=== PATIENT | male | born 1960 | race Caucasian/White ===

== ENCOUNTER 2017-12-12 21:37 | Inpatient (IN) | payer BC ==
[~2017-12-12] VITALS: Ht 195.6 cm; Wt 127.7 kg
--- NOTE | ~2017-12-12 | DS ---
PATIENT:CYN BORRERO :56 MEDICAL RECORD: [id number] DISCHARGE SUMMARY ADMISSION DATE: 12/12/17 DISCHARGE DATE: 12/13/17 DIAGNOSES: 1. Acute anterior myocardial infarction. 2. Percutaneous transluminal coronary angioplasty stent LAD. 3. Hypertension. 4. Hyperlipidemia. HOSPITAL COURSE: Mr. Borrero presents with an acute anterior myocardial infarction, underwent successful PTCA stent of the LAD. He was discharged home with the addition of Plavix to his medical regimen. Follow up with [facility] in one month. TRANSINT:[id number] Voice Confirmation ID: [id number] DOCUMENT ID: [id number] MAGALIS TILLEY MD at 1403 CC: [id number] DICTATION DATE: 12/13/17 1008 MAINTENANCE MECHANIC 2ND SHIFT: 12/13/17 1534 DIS IN 12/13/17 [id number] [place] [address]
--- NOTE | ~2017-12-12 | HP ---
PATIENT: CYN BORRERO MEDICAL RECORD: [id number] ACCOUNT: [id number] LOCATION:[facility] Rosanne.CV03 : 56 ADMISSION DATE: 12/12/17 HISTORY AND PHYSICAL EXAMINATION ADMITTING DIAGNOSES: 1. Acute anterior myocardial infarction. 2. Coronary artery disease. 3. Hypertension. HISTORY OF PRESENT ILLNESS: This is a gentleman who has no previous cardiac history, presents to the Emergency Room with 45 minutes of chest discomfort. EKG is compatible with an acute anterior myocardial infarction. He has received Plavix as well as heparin. He continues to have 8/10 chest pain. REVIEW OF SYSTEMS: The patient reports easy bruising but reports no swollen glands. The patient reports no fever, no night sweats, no significant weight gain, no significant weight loss. No significant exercise tolerance. The patient reports no dry eyes, no irritation, no vision change. Patient reports no difficulty hearing and no ear pain. Patient reports no frequent nose bleeds or nose and sinus problems. Patient reports on arm pain on exertion. No shortness of breath while lying down. No history of heart murmur. Patient reports no cough, no wheezing or coughing up blood. Patient reports no abdominal pain, no vomiting. Normal appetite. No diarrhea and not vomiting blood. No nausea and no constipation. Patient reports no incontinence. No difficulty urinating. No hematuria. No increased frequency. Patient reports no muscle aches. No weakness, no arthralgias, no back pain. No swelling of the extremities. Patient reports no abnormal mole, no jaundice, no rashes. Reports no loss of consciousness. No weakness and no numbness. No seizures, dizziness, or headaches. The patient reports no depression, no sleep disturbance, feeling safe in a relationship and no alcohol abuse. Patient reports on fatigue. Reports no runny nose or sinus pressure. No itching, no hives, and no frequent sneezing. PHYSICAL EXAMINATION: GENERAL APPEARANCE: Well-nourished, well-developed, appears stated age. Level of distress, comfortable. PSYCHIATRIC: Mental status, alert, normal affect. Orientation, oriented to time, place and person. EYES: Lids and conjunctiva, noninjected. No discharge, no pallor. ENT: Lips, teeth, gums, normal dentition. Oropharynx, no cyanosis, no pallor. NECK: Carotid arteries, bilateral normal upstroke, no bruits, no thrills. JUGULAR VEINS: No jugular venous pressure or distention. CERVICAL LYMPH NODES: Nontender, nonenlarged. THYROID: Not enlarged. Nontender. No nodules. LUNGS: Respiratory effort, unlabored. CHEST: Normal curvature. No thoracic deformity. No chest wall tenderness. Percussion, resonant. Auscultation, clear. No wheezes, no rales, no rhonchi. CARDIOVASCULAR: Precordial exam, nondisplaced. No heaves or pericardial thrills. Rate and rhythm, regular. Heart sounds, normal S1, normal S2. No S3, no gallop, no rub. Systolic murmur, not heard. Diastolic murmur, not heard. EXTREMITIES: No cyanosis, no edema. Peripheral pulses, full and equal in all extremities, except as noted. No bruits appreciated. ABDOMEN: Soft, nondistended. Normal aorta. No bruit. Nontender. No masses. Liver, nontender, no hepatomegaly. Spleen, nontender, no splenomegaly. HISTORY AND PHYSICAL [id number] CYN BORRERO MUSCULOSKELETAL: No joint tenderness. No joint swelling. No erythema. NEUROLOGICAL: Normal gait, normal strength, normal tone. SKIN: Warm and dry. OVERALL IMPRESSION: Acute myocardial infarction. We will proceed with coronary angiography. Further care depends upon the findings of the angiography. TRANSINT:[id number] Voice Confirmation ID: [id number] DOCUMENT ID: [id number] MAGALIS TILLEY MD at 1403 CC: [id number] DICTATION DATE: 12/12/172211 MANAGER GALLERY: 12/13/17 0900 DIS IN 12/13/17 [address] [place] [address]
--- NOTE | ~2017-12-12 | OP ---
PATIENT NAME: CYN BORRERO MEDICAL RECORD: [id number] :56 LOCATION:[facility].CV03 ADMISSION DATE:12/12/17 SURGEON: MAGALIS TILLEY MD DATE OF OPERATION: 12/12/2017 PROCEDURES: 1. PTCA stent LAD. 2. PTCA LAD diagonal. 3. Left heart catheterization. 4. Selective coronary angiography. 5. Left ventriculogram. INDICATION: Acute anterior myocardial infarction. PROCEDURE IN DETAIL: After informed consent was obtained and after detailed explanation of risks, benefits as well as alternative therapies, the patient elected to proceed with angiogram and angioplasty. The right femoral area was prepped and draped in normal sterile fashion. Right femoral artery was cannulated via modified Seldinger technique with placement of 6-Ecuadorean sheath. All catheters exchanged through this sheath. FINDINGS: The left ventriculogram was performed in standard 30-degree SPENCER view reveals anteroapical hypokinesis, but ejection fraction still preserved at 50%. SELECTIVE CORONARY ANGIOGRAPHY: 1. Left main is with no significant angiographic disease. 2. Left anterior descending is totally occluded in the mid vessel. This is at the bifurcation of the LAD and LAD diagonal. The LAD as well has an 80% ostial stenosis. 3. The left circumflex is very large, dominant with no significant stenosis. 4. The right coronary artery is small, nondominant with no significant stenosis. PTCA STENT OF THE LAD: The stent used was a 4.0 x 15 in the mid vessel and 4.0 x 8 at the ostium. This caused plaque shift into the diagonal. The diagonal was ballooned with a 3.0 balloon. Result was 0% residual throughout. OVERALL IMPRESSION: Successful percutaneous transluminal coronary angioplasty stent of the left anterior descending going from 100% initial stenosis to 0% residual. TRANSINT:[id number] Voice Confirmation ID: [id number] DOCUMENT ID: [id number] MAGALIS TILLEY MD at 1403 CC: [id number] DICTATION DATE: 12/12/17 2246 CATTERY OPERATOR: 12/13/17 1111 DIS IN 12/13/17 [place] [address]
--- NOTE | ~2017-12-12 | HEMODYNAMI ---
PATIENT:CYN BORRERO MEDICAL RECORD: [id number] : 56 LOCATION:[facility] ADMISSION DATE: 12/12/17 Generatedon:12/12/201722:53 Patient name: CYN BORRERO Patient #: [id number] SSN: D OB: 1960 Date of study: 12/12/2017 Page: Of Hemodynamic Procedure Report Patient Data Patient Demographics Procedure consent was obtained First Name: CYN Gender: Male Last Name: ADAIR : 1960 Middle Initial: L Age: 57 year(s) Patient #: [id number] Race: Unknown Additional ID: [id number] Contact details [address]: [address] [place] [address] STREET State: [place] City: [place] Zip code: [address] Admission Admission Data Admission Date: 12/12/2017 Admission Time: 21:37 Procedure Procedure Types Cath Procedure Diagnostic Procedure LHC LHC w/Coronaries Sedation Charges Moderate Sedation up to 15 minutes PCI Procedure AMI/SVG/GAS ATTENDANT PTCA or Stent AMI-BMS/SHAD Initial PTCA PTCA Additional Procedure Description Procedure Date Procedure Date: 12/12/2017 Procedure Start Time: 22:18 Procedure End Time: 22:46 Procedure Staff Name Function Benoit Hutchinson MD Performing Physician Kerry Park RT Monitor Rola Enriquez RT Scrub Joseph Amos RN Nurse Procedure Data Cath Procedure Fluoroscopy Diagnostic fluoroscopy Total fluoroscopy Time: time: 10.5 min 10.5 min Diagnostic fluoroscopy Total fluoroscopy dose: dose: 1733 mGy 1733 mGy Contrast Material Contrast Material Type Amount (ml) Isovue 300 239 Entry Location Entry Primary Successful Side Size Upsize Upsize Entry Closure Succes sful Closure Location (Fr) 1 (Fr) 2 (Fr) Remarks Device Remarks Femoral Right 6 Fr Exoseal artery Short Estimated blood loss: 5 ml Diagnostic catheters Device Type Used For End Catheter Placement MULTIPACK Pigtail 5 Fr LV Angiography catheter MULTIPACK JL 4.0 5Fr Left Coronary catheter Angiography MULTIPACK 3DRC 5Fr Right Coronary catheter Angiography Procedure Complications No complications Procedure Medications Medication Administration Route Dosage Oxygen NC 2 l/min Lidocaine 2% added to field 20 Heparin Flush Bag added to field 2 bags (1000units/500ml NS) 0.9% NaCl I.V. 100 ml/hr Zofran I.V. 4 mg Versed I.V. 1 mg Fentanyl I.V. 50 mcg Integrilin (Bolus I.V. 11.3 ml 2mg/ml) Amiodarone Loading I.V. drip 150 mg Dose (150mg/100ml D5W) Integrilin (Bolus I.V. 11.3 ml 2mg/ml) Heparin Bolus I.V. 5000 units Lopressor I.V. 5 mg Versed I.V. 1 mg Fentanyl I.V. 50 mcg Hemodynamics Rest Heart Rate: 88 (bpm) Pressure Samples Time Site Value (mmHg) Purpose Heart Use Rate(bpm) 22:19 LV 105/14,17 Snapshot 78 Snapshots Pre Cath Intra NCS Post Cath Vital Signs Time Heart Resp SPO2 etCO2 NIBP (mmHg) Rhythm Pain Sedation Rate (ipm) (%) (mmHg) Status Level (bpm) 22:13:26 90 18 98 29.1 173/116(135) NSR 0 (11) 10(A) , No pain 22:18:26 86 16 94 29.8 168/110(138) NSR 0 (11) 10(A) , No pain 22:23:22 92 20 95 34.3 162/113(138) NSR 0 (11) 10(A) , No pain 22:28:19 102 13 96 32.8 139/98(110) NSR 0 (11) 10(A) , No pain 22:33:10 95 14 97 34.3 136/93(118) NSR 0 (11) 10(A) , No pain 22:37:59 86 15 95 38.8 138/96(112) NSR 0 (11) 10(A) , No pain 22:42:48 85 19 96 24.6 137/100(118) NSR 0 (11) 10(A) , No pain Medications Time Medication Route Dose Verified Delivered Reason Notes Effectiveness by by 22:12:35 Oxygen NC 2 Benoit Ruiz used for l/min Evaneglina Amos system dispatcher 22:12:40 Lidocaine 2% added 20ml Benoit Laboy for local to vial Evangelina Hutchinson MD anesthetic field 22:12:46 Zofran I.V. 4 mg Benoit Ruiz Per physician Evangelina Amos RN 22:12:46 Heparin Flush added 2 Benoit Laboy used for Bag to bags Evangelina Hutchinson MD procedure (1000units/500ml field NS) 22:12:54 0.9% NaCl I.V. 100 Benoit Deyie Per physician ml/hr Evangelina Amos RN 22:14:56 Versed I.V. 1 mg Benoit Deyie for sedation Evangelina Amos RN 22:14:59 Fentanyl I.V. 50 Benoit Buffie for sedation mcg Evangelina Amos RN 22:17:26 Versed I.V. 1 mg Benoit Deyie for sedation Evangelina Amos RN 22:17:32 Fentanyl I.V. 50 Benoit Buffie for sedation mcg Evangelina Amos RN 22:20:46 Integrilin I.V. 11.3 Benoit Ruiz for (Bolus 2mg/ml) ml Evangelina Amos RN antiplatelet therapy 22:30:09 Amiodarone I.V. 150 Benoit Buffie for arrhythmia Loading Dose drip mg Evangelina Amos RN (150mg/100ml D5W) 22:32:30 Integrilin I.V. 11.3 Benoitchristopher Deyie for used 3 (Bolus 2mg/ml) ml Evangelina Amos RN antiplatelet vials, therapy wasted 7.4 ml of last vial 22:33:23 Heparin Bolus I.V. 5000 Benoitchristopher Deyie for verifi ed units Evangelina Amos RN anticoagulation with dr hutchinson 22:35:35 Lopressor I.V. 5 mg Benoit Ruiz for Evangelina Amos RN hypertension Procedure Log Time Note 21:54:49 Signed procedure consent form obtained from patient. 21:54:50 Time tracking: Call back (After hours or weekends) 21:54:58 Plan of Care:Hemodynamics will remain stable., Cardiac rhythm will remain stable., Comfort level will be maintained., Respiratory function will remain adequate., Patient/ family verbilizes understanding of procedure., Procedure tolerated without complication., Recovers from procedure without complications.. 21:55:28 H&P Date Dictated: 12/12/2017 ER History on chart.. 21:55:45 Joseph Amos RN sent for patient. Start room use. 22:05:23 Patient received from ED to CCL 1 Alert and oriented. Tansferred to table in Supine position. 22:05:24 Warm blankets applied, and curtis hugger turned on for patient comfort. 22:05:24 Correct patient and procedure confirmed by team. 22:05:25 ECG and BP/O2 sat monitors applied to patient. 22:12:17 Vital chart was started 22:12:19 Baseline sample Acquired. :12:21 Full Disclosure recording started 22::22 Pre-procedure instructions explained to patient. 22:12:23 Pre-op teaching completed and patient verbalized understanding. 22:12:26 Family in waiting room. 22:12:28 Patient NPO since Midnight. 22:12:33 Is the patient allergic to Iodine/contrast media? No. 22:12:35 Oxygen 2 l/min NC was administered by Joseph Amos RN; used for procedure; 22:12:35 Was the patient premedicated? No 22:12:36 Is patient on blood thinner?Yes 22:12:39 ACC The patient was administered the following blood thiners within the last 24 hours: ACCPlavix 22:12:40 Lidocaine 2% 20ml vial added to field was administered by Benoit Hutchinson MD; for local anesthetic; 22:12:45 Patient diabetic? No. 22:12:46 Zofran 4 mg I.V. was administered by Joseph Amos RN; Per physician; 22:12:46 Heparin Flush Bag (1000units/500ml NS) 2 bags added to field was administered by Benoit Hutchinson MD; used for procedure; 22:12:50 Previous problem with sedation/anesthesia? No ? 22:12:54 0.9% NaCl 100 ml/hr I.V. was administered by Joseph Amos RN; Per physician; 22:12:54 Snore? Yes 22:12:55 Sleep apnea? Yes 22:13:00 Deviated septum? No 22:13:01 Opens mouth fully? Yes 22:13:01 Sticks out tongue? Yes 22:13:03 Airway obstruction? No ? 22:13:06 Dentures? No ? 22:13:09 Pre procedure: right dorsailis pedis pulse 2+ Normal; easily identifiable; not easily obliterated 22:13:11 Pre procedure: left dorsailis pedis pulse 2+ Normal; easily identifiable; not easily obliterated 22:13:13 Patient pain scale 0/10 ?. 22:13:18 IV patent on arrival in left forearm with 0.9% NaCl at [facility]. 22:13:21 Lab results completed and on chart. 22:13:25 Right groin area was prepped with chlora-prep and draped in sterile fashion 22:13: Alarms reviewed by R. N. :: Sharps counted by scrub and verified by R.N. 22:: Physician arrived :: --------ALL STOP TIME OUT------ ::29 Final Timeout: patient, procedure, and site verified with staff and physician. All members of the team are in agreement. 22:13: Right groin site verified by team. 22:13:34 Physical assessment completed. ASA score P 2 - A patient with mild systemic disease as per Benoit Hutchinson MD. 22:13:37 Sedation plan: IV Moderate Sedation Medication:Versed, Fentanyl 22:13:42 Use device set Femoral Dx 22:14:56 Versed 1 mg I.V. was administered by Joseph Amos RN; for sedation; 22:14:59 Fentanyl 50 mcg I.V. was administered by Joseph Amos RN; for sedation; 22:15:30 ACIST Syringe (15478) opened to sterile field. 22:15:30 Bag Decanter (2002) opened to sterile field. 22:15:31 Medline Cath Pack ([id number]) opened to sterile field. 22:15:31 DIAGNOSTIC WIRE .035 260cm J wire (872427) opened to sterile field. 22:15:32 ACIST Hand Control (94188) opened to sterile field. 22:15:33 ACIST Manifold (27632) opened to sterile field. 22:15:34 DIAGNOSTIC Multipack 5Fr catheter set (QY9141) opened to sterile field. 22:15:34 Tegaderm 4 x 4 (1626W) opened to sterile field. 22:17:26 Versed 1 mg I.V. was administered by Joseph Amos RN; for sedation; 22:17:32 Fentanyl 50 mcg I.V. was administered by Joseph Amos RN; for sedation; 22:17:57 Procedure started. 22:18:02 Local anesthetic to right femoral artery with Lidocaine 2% by Benoit Hutchinson MD.INITIAL ACCESS ONLY 22:18:28 A 6 Fr Short sheath was inserted into the Right Femoral artery 22:18:42 SHEATH 6Fr Prelude ([id number]) opened to sterile field. 22:19:06 A MULTIPACK Pigtail 5 Fr catheter was advanced over the wire and used for LV Angiography. 22:19:42 LV hemodynamics recorded. 22:19:43 LV gram done using SPENCER 22:19:46 Injector settings: Ml/sec: 5, Volume: 15, 22:19:53 EF : 50 % 22:19:58 Catheter removed. 22:20:02 A MULTIPACK JL 4.0 5Fr catheter was advanced over the wire and used for Left Coronary Angiography. 22:20:46 Integrilin (Bolus 2mg/ml) 11.3 ml I.V. was administered by Joseph Amos RN; for antiplatelet therapy; 22:21:00 LCA angiography performed. 22:21:40 Injector settings: Ml/sec: 3, Volume: 6, 22:22:28 CHOICE PT Extra Support 182cm wire ([id number]) opened to sterile field. 22:22:49 Catheter removed. 22:22:56 A MULTIPACK 3DRC 5Fr catheter was advanced over the wire and used for Right Coronary Angiography. 22:23:02 RCA angiography performed. 22:23:04 Injector settings: Ml/sec: 3, Volume: 6, 22:23:06 Catheter removed. 22:23:07 Proceeding to intervention. 22:23:17 INFLATOR Merit BasixCompak (PP9857) opened to sterile field. 22:24:04 GUIDE 6FR EBU 4.5 SH catheter ([id number]) opened to sterile field. 22:24:20 6 Fr ebu 4.5 sh guide catheter was inserted over the wire 22:24:36 choice pt wire advanced. 22:26:15 Wire advanced across lesion. 22:27:07 Place stent Inflation Number: 1 A INTEGRITY RX 4.0 x 15 stent ([id number]) was prepped and advanced across the Prox LAD. The stent was deployed at 17 GEMA for 0:10 (min:sec). 22:28:57 patient went into v tach 22:29:02 Quick combo pads placed on patients chest and back. 22:29:13 Defibrillator synced and charged to 200 Joules. 22:29:17 Shock delivered. 22:30:09 Amiodarone Loading Dose (150mg/100ml D5W) 150 mg I.V. drip was administered by Joseph Amos RN; for arrhythmia; 22:32:14 Stent catheter was removed intact over wire. 22:32:30 Integrilin (Bolus 2mg/ml) 11.3 ml I.V. was administered by Joseph Amos RN; for antiplatelet therapy; used 3 vials, wasted 7.4 ml of last vial 22:32:37 Inflate balloon Inflation number: 2 A INTEGRITY RX 4.0 x 09 stent ([id number]) was prepped and advanced across the Prox LAD, then inflated to 17 GEMA for 0:10 (min:sec). 22:33:23 Heparin Bolus 5000 units I.V. was administered by Joseph mAos RN; for anticoagulation; verified with dr hutchinson 22:33:43 Stent catheter was removed intact over wire. 22:35:35 Lopressor 5 mg I.V. was administered by Joseph Amos RN; for hypertension; 22:36:33 Wire redirected to diagonal. 22:39:36 The INTEGRITY RX 4.0 x 09 stent ([id number]) was advanced and then removed because of failure to cross lesion 22:40:34 Inflate balloon Inflation number: 1 A EUPHORA 3.0 x 15 Balloon ([id number]) was prepped and advanced across the 1st Diag, then inflated to 11 GEMA for 0:10 (min:sec). 22:40:43 Inflation number: 2 The EUPHORA 3.0 x 15 Balloon ([id number]) was reinflated across the 1st Diag, to 13 GEMA for 0:10 (min:sec). 22:41:46 Balloon removed over the wire. 22:41:46 Wire removed. 22:41:47 Guide catheter removed. 22:42:06 EXOSEAL 6Fr (EX600) opened to sterile field. 22:42:30 Sheath removed intact; hemostasis achieved with Exoseal to the Right Femoral artery. 22:43:13 Procedure ended.(Physican Out) :43:28 Fluoroscopy time 10.50 minutes. ::37 Fluoroscopy dose: 1733 mGy 22:43:37 Flurop Dose total: 1733 22:43:47 Contrast amount:Isovue 300 239ml. 22:43:49 Sharps counted by scrub and verified by R.N. 22:43:51 Insertion/operative site no bleeding no hematoma. 22:43:54 Post-op/insertion site Right Femoral artery dressed using a 4 x 4 and Tegaderm. 22:43:57 Post right femoral artery:stable 22:43:59 Post Procedure Pulses reassessed and unchanged 22:44:03 Post procedure rhythm: sinus rhythm 22:44:06 Estimated blood loss: 5 ml 22:44:08 Post procedure instruction explained to patient.Patient verbalizes understanding. 22:44:09 Patient needs reinforcement of post procedure teaching. 22:44:50 Procedure type changed to Cath procedure, Diagnostic procedure, LHC, LHC w/Coronaries, Sedation Charges, Moderate Sedation up to 15 minutes, PCI procedure, AMI/SVG/GAS ATTENDANT PTCA or Stent, AMI-BMS/SHAD Initial, PTCA, PTCA Additional 22:44:51 Procedure and supply charges have been captured, reviewed, submitted and are correct. 22:44:58 Procedure Complication : No complications 22:45:53 Vital chart was stopped 22:45:55 See physician's report for complete and final results. 22:46:07 Report given to CVICU. 22:46:09 Patient transfered to CVICU with Stretcher. 22:46:12 Procedure ended. 22:46:12 Full Disclosure recording stopped 22:46:19 ACC-PCI Only Patient was given prescriptions, or instructed by Benoit Hutchinson MD to start/continue the following medications upon discharge: Plavix 22:46:21 End room use (Document Last) Intervention Summary Intervention Notes Time ActionType Lesion and Equipment Action# Pressure Duration Attributes Used 22:27:07 Place stent Prox LAD INTEGRITY RX 1 17 00:10 4.0 x 15 stent ([id number]) 22:32:37 Inflate Prox LAD INTEGRITY RX 2 17 00:10 balloon 4.0 x 09 stent ([id number]) 22:39:36 Discard INTEGRITY RX Balloon 4.0 x 09 stent ([id number]) 22:40:34 Inflate 1st Diag EUPHORA 3.0 1 11 00:10 balloon x 15 Balloon ([id number]) 22:40:43 Reinflate 1st Diag EUPHORA 3.0 2 13 00:10 balloon x 15 Balloon ([id number]) Device Usage Item Name Manufacture Quantity Catalog Number Hospital Part Current Mini mal Lot# / Charge Number Stock Stock Serial# Code ACIST Acist 1 78108 222654 234320 922918 20 Syringe Medical (26235) Systems Inc Bag Decanter Microtek 1 2001S 366984 83950 090093 5 () Medical Inc. Medline Cath Cardinal 1 [id number] 394277 32233 919246 5 Pack Health ([id number]) DIAGNOSTIC St [place] 1 003409 023430 258601 093107 30 WIRE .035 260cm J wire (656344) ACIST Hand Acist 1 82545 262969 654582 374742 5 Control Medical (65490) Systems Inc ACIST Acist 1 86849 761799 243190 598437 5 Manifold Medical (70683) Systems Inc DIAGNOSTIC Cardinal 1 TX4176 365216 59047 277598 30 Multipack Health 5Fr catheter set (OK4272) Tegaderm 4 x 3M 1 1626W 086646 528948 372753 5 4 (1626W) SHEATH 6Fr Merit 1 [id number] 989578 155875 695952 5 Prelude Medical ([id number]) MULTIPACK Cardinal 1 245802 5 Pigtail 5 Fr Health catheter MULTIPACK JL Cardinal 1 874533 5 4.0 5Fr Health catheter CHOICE PT [place] 1 [id number] 165998 539319 056485 5 Extra Scientific Support 182cm wire ([id number]) MULTIPACK Cardinal 1 523882 5 3DRC 5Fr Health catheter INFLATOR Merit 1 CM5694 663637 333970 062437 15 [place] Medical BasixCompak (KR6475) GUIDE 6FR Medtronic 1 [id number] 572510 19442 463811 0 EBU 4.5 SH catheter ([id number]) INTEGRITY RX Medtronic 1 [id number] 414631 884004 051260 5 [id number] 4.0 x 15 stent ([id number]) INTEGRITY RX Medtronic 1 [id number] 247521 350422 913807 5 [id number] 4.0 x 09 stent ([id number]) EUPHORA 3.0 Medtronic 1 [id number] 287396 951638 816092 5 [id number] x 15 Balloon ([id number]) EXOSEAL 6Fr Cardinal 1 EX600 174559 340769 995261 10 (EX600) Health Signature Audit [place] Stage Time Signature Unsigned Intra-Procedure 12/12/2017 Kerry Park 10:53:48 PM RT(R) Signatures Monitor : Kerry Park RT Signature : Date : Time : [id number] [place] [address]
--- NOTE | ~2017-12-12 | HP ---
PATIENT: CYN BORRERO MEDICAL RECORD: [id number] ACCOUNT: [id number] LOCATION:[facility].CV03 : 56 ADMISSION DATE: 12/12/17 HISTORY AND PHYSICAL EXAMINATION ADDENDUM Note: I said one thing incorrectly, it should be anterior not inferior, so everywhere where I said inferior just change it to anterior. TRANSINT:[id number] Voice Confirmation ID: [id number] DOCUMENT ID: [id number] MAGALIS TILLEY MD CC: [id number] DICTATION DATE: 12/12/172243 ADMINISTRATION INTERNSHIP: 12/13/17 0904 ADM IN [facility] [address] [place] [address]
[2017-12-12 21:52] LABS: BASOPHILS 0.6 % (0-2); EOSINOPHILS 2.8 % (0-7); HEMATOCRIT 42.9 % (42.0-54.0); HEMOGLOBIN 14.9 g/dL (13.5-17.5); IMMATURE GRANULOCYTES 0.1 % (0-5); LYMPHOCYTES 47.2 % (15-50); MCH 31.7 pg (26.0-34.0); MCHC 34.7 g/dL (31.0-37.0); MCV 91.3 fL (80.0-100.0); MEAN PLATELET VOLUME 10.4 fL (7.4-10.4); MONOCYTES 7.6 % (2-11); NEUTROPHILS 41.7 % (40-80); PLATELET COUNT 207 10x3/uL (130-400); RDW 13.2 % (11.5-14.5); WBC 7.9 10x3/uL (4.8-10.8)
[2017-12-12 22:20] LABS: ALBUMIN 3.7 g/dL (3.4-5.0); ALKALINE PHOSPHATASE 59 U/L (46-116); ALT (SGPT) 36 U/L (10-68); BILIRUBIN - TOTAL 0.39 mg/dL (0.2-1.3); CALC OSMOLALITY 288 mosm/kg (275-300); CALCIUM 9.3 mg/dL (8.5-10.1); CARBON DIOXIDE 30.5 mmol/L (21.0-32.0); CHLORIDE - SERUM 105 mmol/L (98-107); CREATININE - SERUM 1.4 mg/dL (0.6-1.3); GLUCOSE 115 mg/dL (74-106); POTASSIUM - SERUM 3.5 mmol/L (3.5-5.1); PROTEIN - SERUM 7.7 g/dL (6.4-8.2); SODIUM 143 mmol/L (136-145); UREA NITROGEN 21 mg/dL (7-18); eGFR NON AFRICAN AMERICAN 55 mL/min (90-120)
[2017-12-12 22:34] LABS: CHOL - HDL RATIO 7.4 ratio (2.3-4.9); CHOLESTEROL, TOTAL 193 mg/dL (0-200); CKMB 2.4 U/L (0.0-3.6); CREATINE KINASE 190 UL (21-232); HDL CHOLESTEROL 26 mg/dL (32-96); LDL CHOLESTEROL 135 mg/dL (0-100); LDL-HDL RATIO 5.2 ratio (1.5-3.5); TRIGLYCERIDE 164 mg/dL (30-200)
[2017-12-12 22:39] LABS: TROPONIN-I 0.153 ng/mL (0.000-0.060)
[2017-12-12] MEDS ORDERED: METOPROLOL TART50 MG PO (23:57)
[2017-12-12] MEDS ORDERED: LIPITOR10 MG PO (23:57)
[2017-12-12] MEDS ORDERED: HYZAAR 100-25 T1 TAB PO (23:58)
[2017-12-13] VITALS (12 sets, daily range): BP systolic 130–149; BP diastolic 81–95; Ht 195.6 cm; Wt 127.7 kg
[2017-12-13] MEDS ORDERED: NORVASC5 MG PO (00:01)
[2017-12-13] MEDS ORDERED: ZYLOPRIM300 MG PO (00:02)
[2017-12-13 05:51] LABS: BASOPHILS 0.2 % (0-2); EOSINOPHILS 0.7 % (0-7); HEMATOCRIT 40.8 % (42.0-54.0); IMMATURE GRANULOCYTES 0.2 % (0-5); LYMPHOCYTES 25.1 % (15-50); MCH 31.9 pg (26.0-34.0); MCHC 34.3 g/dL (31.0-37.0); MCV 92.9 fL (80.0-100.0); MEAN PLATELET VOLUME 10.2 fL (7.4-10.4); MONOCYTES 8.8 % (2-11); PLATELET COUNT 186 10x3/uL (130-400); RBC 4.39 10x6/uL (4.20-6.10); RDW 13.3 % (11.5-14.5); WBC 8.9 10x3/uL (4.8-10.8)
[2017-12-13 06:37] LABS: CALCIUM 8.7 mg/dL (8.5-10.1); CARBON DIOXIDE 29.2 mmol/L (21.0-32.0); CHLORIDE - SERUM 105 mmol/L (98-107); GLUCOSE 111 mg/dL (74-106); SODIUM 143 mmol/L (136-145)
[2017-12-13 06:38] LABS: CALC OSMOLALITY 286 mosm/kg (275-300); POTASSIUM - SERUM 4.1 mmol/L (3.5-5.1); UREA NITROGEN 15 mg/dL (7-18); eGFR NON AFRICAN AMERICAN 81 mL/min (90-120)
[2017-12-13] MEDS ORDERED: BAYER CHEWABLE81 MG PO (10:49)
[2017-12-13] MEDS ORDERED: PLAVIX75 MG PO (10:52)
[2017-12-13] MEDS ORDERED: BETAPACE 80 MG80 MG PO (11:32)
== END 2017-12-13 12:05 | disposition home or self-care (01) | DRG 249 ==
LOC: D.ER 21:37 → D.CATH 21:37 → EDSTATUS 22:12 → D.CVICU 22:59
PROVIDERS: Family Medicine; Internal Medicine Interventional Cardiology
PROC: B2151ZZ Fluoroscopy of Left Heart using Low Osmolar Contrast (ICD-10-PCS; 2017-12-12)
PROC: 4A023N7 Measurement of Cardiac Sampling and Pressure, Left Heart, Percutaneous Approach (ICD-10-PCS; 2017-12-12)
PROC: 02703ZZ Dilation of Coronary Artery, One Artery, Percutaneous Approach (ICD-10-PCS; 2017-12-12)
PROC: 02703EZ Dilation of Coronary Artery, One Artery with Two Intraluminal Devices, Percutaneous Approach (ICD-10-PCS; principal; 2017-12-12 21:55)
PROC: B2111ZZ Fluoroscopy of Multiple Coronary Arteries using Low Osmolar Contrast (ICD-10-PCS; 2017-12-12 21:55)
DX: I21.09 ST elevation (STEMI) myocardial infarction involving other coronary artery of anterior wall (principal); I25.10 Atherosclerotic heart disease of native coronary artery without angina pectoris; I10 Essential (primary) hypertension; E78.5 Hyperlipidemia, unspecified